=== PATIENT | male | born 1950 | race Caucasian/White ===

== ENCOUNTER 2024-06-12 22:10 | Emergency (ER) | payer OTHER, SELFPAY ==
[2024-06-12 22:10] VITALS: BMI 25.5
[2024-06-12 22:42] VITALS: BP 161/96
[2024-06-12 23:00] VITALS: BP 162/96
[2024-06-12] MEDS: DILAUDID 0.5 MG IV (23:05)
--- NOTE | 2024-06-12 23:05 | ED.GENMED ---
History of Present Illness
General
Chief Complaint: Abdominal Pain
Source: patient, spouse and family
Time Seen by Provider: 06/12/24 22:52
History of Present Illness
History of Present Illness:
74-year-old male presents emergency department with a 4-month history of lower abdominal pain that feels 'stabbing', is constant, without exacerbating relieving factors. He also has associated anorexia, a 50 pound weight loss, and reported pain and
difficulty urinating. He reportedly had a CAT scan 4 days ago that was unremarkable. Family states he has not had any other workup regarding. Physicians thought that his symptoms were related to his longstanding scoliosis and so he just had a
lumbar fusion earlier this month and has been recovering well from that. Today, the pain got worse which prompted his visit here. He denies fever, chills, chest pain, shortness of breath, new back pain, weakness, incontinence, or other complaints.
Past History
Past History
ED Past Medical History: Other (BPH, scoliosis, hypertension, reflux)
ED Past Surgical History: Appendectomy, Cholecystectomy and Orthopedic
Social History
Tobacco: Non-smoker
Alcohol: None
Drug: None
Personal:
Phy Exam
Physical Exam
Physical Exam:
GENERAL: Alert , in no apparent distress
EYE: pupils equal and reactive
NECK: Supple, no significant adenopathy.
ENT: o/p clr, mmm.
CARDIAC: Regular rate and rhythm .
LUNGS: Clear breath sounds bilaterally, no acute respiratory distress, no wheezes/rales/rhonchi
ABDOMEN: Soft, mild lower abdominal tenderness, no r/g, no cvat
NEUROLOGICAL: Alert and oriented, no focal neuro deficits
SKIN: Warm and dry, skin intact.
MUSCULOSKELETAL: No edema, well perfused.
PSYCH: Normal and appropriate interaction.
Back incision clean dry and intact, karen and sutures in place without associated redness warmth drainage
Course
Orders/Labs/Results
Orders:
Orders
06/12/24 23:04
Cardiac Monitoring- Treatment ONCE
EKG- Treatment ONCE
Urinalysis Reflex To Culture Urgent
Date Specimen was Collected: 06/13/24
Time Specimen was Collected: 00:35
HYDROmorphone [Dilaudid] 0.5 mg IV NOW STA
Iohexol [Omnipaque] See Protocol PO NOW STA
06/12/24 23:35
Complete Blood Count/No Diff Urgent
Comprehensive Metabolic Panel Urgent
Lipase Urgent
06/13/24
Electrocardiogram (*1) Stat
Comment: DONE EMR
Electrocardiogram (*1) Stat
Reason for Study: Chest Pain
Comment: DONE
06/13/24 00:00
CT Abd/pel W Iv And Oral Contr Urgent
Reason For Exam: lower abd pain, hx appy/dona
06/13/24 03:11
Ketorolac [Toradol] 15 mg IV NOW STA
Abnormal Lab Results
06/12/24
23:35
WBC 12.0 H 10^3/uL
(4.8-10.8)
RBC 3.57 L 10^6/uL
(4.70-6.10)
Hgb 11.9 L g/dL
(13.0-18.0)
Hct 33.3 L %
(39.0-52.0)
MCH 33.3 H pg
(27.0-31.0)
BUN 22 H mg/dl
(9-20)
Glucose 107 H mg/dl
(70-99)
AST 69 H U/L
(17-59)
ALT 91 H U/L
(0-50)
Lipase 319 H U/L
(23-300)
06/12/24 23:35
06/12/24 23:35
Vital Signs
Initial and Last Documented VS:
Initial Vital Signs
Temp Pulse Resp BP Pulse Ox
97.9 F 81 15 161/96 96
06/12/24 22:42 06/12/24 22:42 06/12/24 22:42 06/12/24 22:42 06/12/24 22:42
Last Documented Vital Signs
Temp Pulse Resp BP Pulse Ox
97.9 F 85 18 153/87 97
06/12/24 22:42 06/13/24 06:25 06/13/24 06:25 06/13/24 00:00 06/13/24 06:25
*Critical Care Note
Total Time (30-74mins, 75-104mins- exclusive of procedures): Not Applicable
Update Note
Update Note:
Patient presents to the Emergency Department with ___abdominal pain
Number and Complexity of Problems Addressed at the Encounter
� Chronic conditions affecting care:
� Acute Exacerbation and/or Progression of Chronic Illness:
� Differential Diagnosis includes: But not limited to constipation, diverticulitis, colon cancer, bladder cancer, etc. etc.
Amount and/or Complexity of Data to be Reviewed and Analyzed
� I performed an independent evaluation of and my interpretation is:
EKG: Read by me, normal sinus rhythm, normal rate, normal axis, acute ischemia
CT: Vision report no acute abnormality seen. Cholecystectomy. Postoperative changes in the spine. Large cyst left kidney. Appendix not seen diverticulosis without evidence of diverticulitis ears are difficult to characterize
sonographically. No definite stone identified. Small left inguinal hernia containing sigmoid colon but no obstruction.
Xrays:
Laboratory Studies: Nonspecific mild white blood cell count elevation, mild anemia, nonspecific mild lipase elevation, UA negative
Other:
� Review of other/old records reveals:
� Clinical information was obtained by an independent historian: Daughter, niece who is an RN and serves as clinical project leader at patient request, and
� Prescriptions/Medications Considered but not given:
� Further testing considered but not performed:
Risk of Complications and/or Morbidity or Mortality of Patient Management
� Social determinants of health affecting care:
� Discussion with other providers (PCP, Hospitalists, Consultants, etc):
� Escalation of care including admission/observation vs risk of discharge considered: 5:44 AM patient resting comfortably, family has gone home. Workup here unremarkable for any acute etiology for patient's subacute/prolonged
but yet unidentified symptoms. Discussed with family before they left our role here in doing her best to exclude acute process, and importance of close follow-up.
ED Attending Note
-
Portions of this chart may have been created with voice recognition software.� Occasional wrong word or��sound alike� substitutions may have occurred due to the inherent limitations of voice recognition software.
Discharge Plan
Departure
Patient Disposition: Half-Way/SNF
Date of Disposition: 06/13/24
Time of Disposition: 05:46
Patient with high blood pressure during this ER visit?: Yes
Condition: Good
Discharge Problem:
Abdominal pain
Instructions: Abdominal Pain, BLOOD PRESSURE
Referrals:
Marin Melendez MD [Family Provider] - Tomorrow
Activity Restrictions/Additional Instructions:
YOUR WORKUP TODAY DID NOT REVEAL A SPECIFIC CAUSE FOR YOUR SYMPTOMS AND YOU SHOULD SEE YOUR DOCTOR IN VERY CLOSE FOLLOW-UP FOR CONTINUED EVALUATION. PLEASE SEE ATTACHED LABS FOR REFERENCE. PLEASE HAVE YOUR DOCTOR REVIEW THE CAT SCAN REPORT WHEN IT
IS FORMALLY DICTATED WITHIN THE NEXT 24 HOURS
Interventions
Interventions:
*Risk Screen - Suicide Last Done: 06/12/24 22:42
*General Assessment Last Done: 06/12/24 22:42
*Neglect/Abuse Screening Last Done: 06/12/24 22:42
*ED- Fall Risk Assessment Last Done: 06/13/24 01:21
*ED COVID-19 Vaccine History Last Done: 06/13/24 01:21
*Nursing Disposition Last Done: 06/13/24 06:25
MF-Gpppit-Jloorybrtx Assessment Last Done: 06/13/24 00:59
Discharge Date and Time
Discharge Date/Time: 06/13/24 06:41
Print Language: SAMI
[2024-06-12 23:30] VITALS: BP 156/94
[2024-06-12 23:43] LABS: Hematocrit 33.3 % (39.0-52.0); Hemoglobin 11.9 g/dL (13.0-18.0); Mean Corp Hgb Conc. 35.7 g/dL (33.0-37.0); Mean Corpuscular Hgb 33.3 pg (27.0-31.0); Mean Corpuscular Volume 93.3 fL (80.0-94.0); Mean Platelet Volume 10.1 fL (7.4-10.4); Platelet Count 284 10^3/uL (130-400); Red Blood Cell Count 3.57 10^6/uL (4.70-6.10); Red Cell Dist. Width 12.8 % (11.5-14.5)
[2024-06-13] VITALS: BP 153/87
[2024-06-13] LABS: ALT (SGPT) 91 U/L (0-50); AST (SGOT) 69 U/L (17-59); Albumin 4.2 g/dl (3.5-5.0); Alkaline Phosphatase 64 U/L (38-126); Blood Urea Nitrogen 22 mg/dl (9-20); Calcium 9.6 mg/dl (8.4-10.2); Carbon Dioxide 24 mmol/L (22-30); Chloride 102 mmol/L (98-107); Estimated Creatinine Clearance 89 ml/min; Glucose 107 mg/dl (70-99); Lipase 319 U/L (23-300); Potassium 4.5 mmol/L (3.5-5.1); Sodium 137 mmol/L (135-145); Total Bilirubin 0.8 mg/dl (0.2-1.3); Total Protein 6.9 g/dl (6.3-8.2); eGFR > 60.00
[2024-06-13] MEDS: OMNIPAQUE 50 ML PO (00:11)
[2024-06-13 00:42] LABS: Urine Albumin Negative (Neg - Trace); Urine Bilirubin Negative (Negative); Urine Character Clear (Clear); Urine Color Yellow; Urine Glucose Negative (Negative); Urine Ketone Negative (Negative); Urine Leukocyte Negative (Negative); Urine Nitrite Negative (Negative); Urine Occult Blood Negative (Negative); Urine Urobilinogen 1+ (Neg - 1+)
[2024-06-13] MEDS: TORADOL 15 MG IV (03:37)
== END 2024-06-13 06:41 ==
LOC: EMR 22:10
PROVIDERS: EMERGENCY PHYSICIAN Emergency Medicine; FAMILY PHYSICIAN Internal Medicine
DX: R10.30 Lower abdominal pain, unspecified (principal); I10 Essential (primary) hypertension
CPT/HCPCS: 99285; 96374; 96375; 74177; 80053; 81003; 83690; 85027; 93005; Q9967